=== PATIENT | female | born 1995 | race Caucasian/White ===

== ENCOUNTER 2017-11-17 12:27 | Emergency (ER) | payer MEDICAID ==
[~2017-11-17] VITALS: Ht 157.5 cm; Wt 68.0 kg
[2017-11-17] MEDS ORDERED: QUET200T PO (12:51)
[2017-11-17] MEDS ORDERED: DIVA-76 PO (12:51)
[2017-11-17] MEDS ORDERED: VENL-68 PO (12:51)
[2017-11-17] MEDS ORDERED: HALO100A IM (12:51)
[2017-11-17 13:46] LABS: BASOPHILS % (AUTO) 0.5 % (0.0-2.0); HEMATOCRIT 39.7 % (36-46); HEMOGLOBIN 13.5 g/dL (12.0-16.0); LYMPHOCYTES # (AUTO) 2.1 K/uL (1.0-4.8); LYMPHOCYTES % (AUTO) 20.2 % (22.0-44.0); MEAN CORPUSCULAR HEMOGLOBIN 30.8 pg (26.0-34.0); MEAN CORPUSCULAR VOLUME 91 fL (80-100); MONOCYTES # (AUTO) 1.1 K/uL (0.1-1.0); MONOCYTES % (AUTO) 10.9 % (2.0-9.0); NEUTROPHILS # (AUTO) 6.9 K/uL (1.8-7.7); NEUTROPHILS % (AUTO) 65.4 % (40.0-70.0); PLATELET COUNT (AUTO) 207 K/uL (150-450); RED BLOOD CELL COUNT(AUTO) 4.38 MIL/uL (4.00-5.20); RED CELL DISTRIBUTION WIDTH 13.6 % (11.5-14.5)
[2017-11-17 13:59] LABS: ANION GAP 7 mmol/L (8-16); CALCIUM, TOTAL 8.8 mg/dL (8.8-10.5); CARBON DIOXIDE 28 mmol/L (22-29); CHLORIDE 103 mmol/L (98-107); CREATININE 0.74 mg/dL (0.60-1.30); GLOMERULAR FILTR. RATE CALC > 60 mL/min (>60); GLUCOSE,RANDOM 108 mg/dL (70-110); POTASSIUM 3.7 mmol/L (3.5-5.1); SODIUM SERUM 138 mmol/L (136-145); UREA NITROGEN, BLOOD 9 mg/dL (7-18)
[2017-11-17 14:06] LABS: ALANINE AMINOTRANSFERASE 110 U/L (12-78); ALBUMIN 3.3 g/dL (3.4-5.0); ALKALINE PHOSPHATASE 85 U/L (46-116); ASPARTATE AMINOTRANSFERASE 81 U/L (15-37); BILIRUBIN,TOTAL 0.3 mg/dL (0.1-1.0); TOTAL PROTEIN, SERUM 7.6 g/dL (6.4-8.2); VALPROIC ACID 93 mcg/mL (50-100)
[2017-11-17 14:44] LABS: HCG,QUANTITATIVE < 1 mIU/mL (0-6)
[2017-11-17 15:07] VITALS: BP 114/71
== END 2017-11-17 15:24 | disposition home or self-care (01) ==
LOC: EMS 12:28
DX: F20.9 Schizophrenia, unspecified (principal); F31.9 Bipolar disorder, unspecified; G40.909 Epilepsy, unspecified, not intractable, without status epilepticus; Z79.899 Other long term (current) drug therapy
CPT/HCPCS: 36415; 80053; 80164; 84702; 84703; 85025; 99284; G0480

== ENCOUNTER 2017-11-27 15:20 | Inpatient (IN) | payer MEDICAID ==
[~2017-11-27] VITALS: Ht 157.5 cm; Wt 86.0 kg
[~2017-11-27 15:20] MED LIST: DIVA-76 PO; HALO100A IM; QUET200T PO; VENL-68 PO
[2017-11-27] MEDS ORDERED: CLON2 PO (15:27)
[2017-11-27 15:57] LABS: HEMATOCRIT 37.8 % (36-46); MEAN CORPUSCULAR HEMOGLOBIN 30.6 pg (26.0-34.0); MEAN CORPUSCULAR HGB CONC 34.5 G/dL (31.0-37.0); MEAN CORPUSCULAR VOLUME 89 fL (80-100); PLATELET COUNT (AUTO) 208 K/uL (150-450); RED BLOOD CELL COUNT(AUTO) 4.26 MIL/uL (4.00-5.20); RED CELL DISTRIBUTION WIDTH 13.2 % (11.5-14.5)
[2017-11-27 16:08] LABS: ANION GAP 6 mmol/L (8-16); CALCIUM, TOTAL 8.5 mg/dL (8.8-10.5); CARBON DIOXIDE 30 mmol/L (22-29); CHLORIDE 103 mmol/L (98-107); CREATININE 0.77 mg/dL (0.60-1.30); GLOMERULAR FILTR. RATE CALC > 60 mL/min (>60); GLUCOSE,RANDOM 85 mg/dL (70-110); POTASSIUM 3.8 mmol/L (3.5-5.1); SODIUM SERUM 139 mmol/L (136-145); UREA NITROGEN, BLOOD 13 mg/dL (7-18)
[2017-11-27 16:08] LABS: AMPHET/METH SCREEN,URINE NEGATIVE (NEGATIVE); BARBITURATE SCREEN, URINE NEGATIVE (NEGATIVE); BENZODIAZEPINES SCREEN,URINE NEGATIVE (NEGATIVE); CANNABINOID SCREEN,URINE NEGATIVE (NEGATIVE); COCAINE SCREEN,URINE NEGATIVE (NEGATIVE); METHADONE SCREEN, URINE NEGATIVE (NEGATIVE); OPIATE SCREEN,URINE NEGATIVE (NEGATIVE)
[2017-11-27 16:10] LABS: PHENCYCLIDINE SCREEN,URINE NEGATIVE (NEGATIVE)
[2017-11-27 16:22] LABS: ALANINE AMINOTRANSFERASE 67 U/L (12-78); ALBUMIN 3.5 g/dL (3.4-5.0); ALKALINE PHOSPHATASE 88 U/L (46-116); ASPARTATE AMINOTRANSFERASE 40 U/L (15-37); BILIRUBIN,TOTAL 0.2 mg/dL (0.1-1.0); HCG,QUANTITATIVE < 1 mIU/mL (0-6); TOTAL PROTEIN, SERUM 7.8 g/dL (6.4-8.2); VALPROIC ACID 77 mcg/mL (50-100)
[2017-11-27 16:48] LABS: BAND NEUTROPHILS % (MANUAL) 3 % (0-5); EOSINOPHILS % (MANUAL) 2 % (1-6); LYMPHOCYTES % (MANUAL) 24 % (22-44); METAMYELOCYTES % 1 % (0-0); MONOCYTES % (MANUAL) 14 % (2-9); SEGMENTED NEUTROPHILS % 56 % (40-70)
[2017-11-27 16:58] LABS: APPEARANCE,URINE CLEAR (CLEAR); BILIRUBIN,URINE NEGATIVE (NEGATIVE); GLUCOSE, URINE (UA) NEGATIVE (NEGATIVE); KETONES,URINE TRACE mg/dL (NEGATIVE); LEUKOCYTE ESTERASE ,URINE SMALL (NEGATIVE); NITRATE,URINE NEGATIVE (NEGATIVE); OCCULT BLOOD,URINE NEGATIVE (NEGATIVE); PROTEIN,URINE NEGATIVE (NEGATIVE); UROBILINOGEN,URINE 0.2 mg/dL (<=1.0)
[2017-11-27 17:05] LABS: BACTERIA,URINE Few /HPF (None Seen); RBC,URINE None Seen /HPF (0-2); SQUAMOUS EPITHELIAL CELL,UR Few /LPF (None Seen)
[2017-11-27 18:11] VITALS: BP 116/77
[2017-11-27] MEDS: ZOLPIDEM TARTRATE 10 MG TABLET PO PRN (20:47)
[2017-11-28 08:05] VITALS: BP 119/76
[2017-11-28] MEDS: NITROFURANTOIN/NITROFURAN MAC 100 MG CAPSULE [MACROBID] PO SCH ×2 (08:35→16:09)
[2017-11-28 16:01] VITALS: BP 113/70
[2017-11-28] MEDS: HALOPERIDOL 5 MG TABLET PO PRN (16:09)
[2017-11-28] MEDS: LORazepam 2 MG TABLET PO PRN (16:09)
[2017-11-28] MEDS: ZOLPIDEM TARTRATE 10 MG TABLET PO PRN (20:09)
[2017-11-28] MEDS ORDERED: HALOPERIDOL DECANOATE 50 MG/ML VIAL IM ONE (20:15)
[2017-11-28] MEDS: HALOPERIDOL 10 MG TABLET PO SCH (20:29)
[2017-11-29 00:29] VITALS: BP 133/99
[2017-11-29] MEDS: LORazepam 2 MG TABLET PO PRN (00:50)
[2017-11-29] MEDS: HALOPERIDOL 5 MG TABLET PO PRN (00:50)
[2017-11-29] MEDS: DIVALPROEX SODIUM 500 MG DR TABLET PO SCH ×2 (08:40→16:00)
[2017-11-29] MEDS: NITROFURANTOIN/NITROFURAN MAC 100 MG CAPSULE [MACROBID] PO SCH ×2 (08:40→16:00)
[2017-11-29 08:52] VITALS: BP 102/77
[2017-11-29 16:25] VITALS: BP 113/75
[2017-11-29] MEDS: HALOPERIDOL 10 MG TABLET PO SCH (20:00)
[2017-11-30 08:24] VITALS: BP 118/72
[2017-11-30] MEDS: NITROFURANTOIN/NITROFURAN MAC 100 MG CAPSULE [MACROBID] PO SCH ×2 (09:35→16:25)
[2017-11-30] MEDS: DIVALPROEX SODIUM 500 MG DR TABLET PO SCH ×2 (09:35→16:25)
[2017-11-30 16:18] VITALS: BP 114/67
[2017-11-30] MEDS: HALOPERIDOL 10 MG TABLET PO SCH (20:04)
[2017-12-01] MEDS: LORazepam 2 MG TABLET PO PRN ×3 (00:48→17:19)
[2017-12-01 08:17] VITALS: BP 118/83
[2017-12-01] MEDS: DIVALPROEX SODIUM 500 MG DR TABLET PO SCH ×2 (08:22→17:19)
[2017-12-01] MEDS: NITROFURANTOIN/NITROFURAN MAC 100 MG CAPSULE [MACROBID] PO SCH ×2 (08:22→17:19)
[2017-12-01 16:16] VITALS: BP 112/60
[2017-12-01] MEDS: HALOPERIDOL 5 MG TABLET PO PRN (17:19)
[2017-12-01] MEDS: HALOPERIDOL 10 MG TABLET PO SCH (20:55)
[2017-12-01] MEDS: ZOLPIDEM TARTRATE 10 MG TABLET PO PRN (20:55)
[2017-12-02 06:25] VITALS: BP 105/60
[2017-12-02] MEDS ORDERED: MACR100 PO (08:13)
[2017-12-02] MEDS ORDERED: HALO10 PO (08:13)
[2017-12-02] MEDS ORDERED: DIVA-78 PO (08:14)
[2017-12-02] MEDS: NITROFURANTOIN/NITROFURAN MAC 100 MG CAPSULE [MACROBID] PO SCH (08:15)
[2017-12-02] MEDS: DIVALPROEX SODIUM 500 MG DR TABLET PO SCH (08:15)
[2017-12-02 08:28] VITALS: BP 115/75
[2017-12-02 16:29] VITALS: BP 122/68
[2017-12-29] MEDS ORDERED: HALOPERIDOL DECANOATE 100 MG/ML VIAL IM SCH (09:00)
== END 2017-12-02 16:57 | disposition home or self-care (01) | DRG 750 ==
LOC: EMS 15:20 → B3A 17:01
PROVIDERS: ADMIT Psychiatry & Neurology Psychiatry; ATTEND Psychiatry & Neurology Psychiatry
DX: F20.0 Paranoid schizophrenia (principal); R45.851 Suicidal ideations; R45.850 Homicidal ideations; N39.0 Urinary tract infection, site not specified; G40.909 Epilepsy, unspecified, not intractable, without status epilepticus; Z23 Encounter for immunization
CPT/HCPCS: 87086; 90686; 99285; G0480; J1631

== ENCOUNTER 2017-12-02 20:21 | Inpatient (IN) | payer MEDICAID ==
[~2017-12-02] VITALS: Ht 157.5 cm; Wt 86.9 kg
[~2017-12-02 20:21] MED LIST changes: +CLON2 PO; +DIVA-78 PO; +HALO10 PO; +MACR100 PO
[2017-12-02 21:33] LABS: HEMATOCRIT 39.3 % (36-46); HEMOGLOBIN 13.4 g/dL (12.0-16.0); MEAN CORPUSCULAR HEMOGLOBIN 30.8 pg (26.0-34.0); MEAN CORPUSCULAR HGB CONC 34.2 G/dL (31.0-37.0); MEAN CORPUSCULAR VOLUME 90 fL (80-100); PLATELET COUNT (AUTO) 243 K/uL (150-450); RED BLOOD CELL COUNT(AUTO) 4.37 MIL/uL (4.00-5.20); RED CELL DISTRIBUTION WIDTH 13.6 % (11.5-14.5)
[2017-12-02 21:40] LABS: ANION GAP 9 mmol/L (8-16); CALCIUM, TOTAL 9.1 mg/dL (8.8-10.5); CARBON DIOXIDE 26 mmol/L (22-29); CHLORIDE 103 mmol/L (98-107); CREATININE 0.88 mg/dL (0.60-1.30); GLOMERULAR FILTR. RATE CALC > 60 mL/min (>60); GLUCOSE,RANDOM 122 mg/dL (70-110); POTASSIUM 3.9 mmol/L (3.5-5.1); SODIUM SERUM 138 mmol/L (136-145); UREA NITROGEN, BLOOD 11 mg/dL (7-18)
[2017-12-02 21:47] LABS: ALANINE AMINOTRANSFERASE 78 U/L (12-78); ALBUMIN 3.6 g/dL (3.4-5.0); ALKALINE PHOSPHATASE 93 U/L (46-116); ASPARTATE AMINOTRANSFERASE 48 U/L (15-37); BILIRUBIN,TOTAL 0.3 mg/dL (0.1-1.0); TOTAL PROTEIN, SERUM 8.5 g/dL (6.4-8.2)
[2017-12-02] MEDS ORDERED: DiphenhydrAMINE HCL 50 MG/ML VIAL IM ONE (22:00)
[2017-12-02] MEDS ORDERED: LORazepam 2 MG/ML VIAL IM ONE (22:00)
[2017-12-02] MEDS ORDERED: HALOPERIDOL LACTATE 5 MG/ML VIAL IM ONE (22:00)
[2017-12-02 22:09] LABS: BAND NEUTROPHILS % (MANUAL) 3 % (0-5); LYMPHOCYTES % (MANUAL) 18 % (22-44); MONOCYTES % (MANUAL) 14 % (2-9); MYELOCYTES % 2 % (0-0); SEGMENTED NEUTROPHILS % 63 % (40-70)
[2017-12-02 22:12] LABS: PLATELET MORPHOLOGY COMMENT GIANT PLTS PRESENT
[2017-12-03 00:59] LABS: AMPHET/METH SCREEN,URINE NEGATIVE (NEGATIVE); BARBITURATE SCREEN, URINE NEGATIVE (NEGATIVE); BENZODIAZEPINES SCREEN,URINE NEGATIVE (NEGATIVE); CANNABINOID SCREEN,URINE NEGATIVE (NEGATIVE); COCAINE SCREEN,URINE NEGATIVE (NEGATIVE); METHADONE SCREEN, URINE NEGATIVE (NEGATIVE); OPIATE SCREEN,URINE NEGATIVE (NEGATIVE); PHENCYCLIDINE SCREEN,URINE NEGATIVE (NEGATIVE)
[2017-12-03] MEDS ORDERED: SODIUM CHLORIDE 0.9% 2,000 ML IV ONE (01:15)
[2017-12-03 03:10] LABS: BASOPHILS % (AUTO) 0.3 % (0.0-2.0); EOSINOPHILS % (AUTO) 0.9 % (1.0-6.0); HEMATOCRIT 34.5 % (36-46); HEMOGLOBIN 11.8 g/dL (12.0-16.0); LYMPHOCYTES # (AUTO) 2.6 K/uL (1.0-4.8); LYMPHOCYTES % (AUTO) 19.7 % (22.0-44.0); MEAN CORPUSCULAR HEMOGLOBIN 30.9 pg (26.0-34.0); MEAN CORPUSCULAR HGB CONC 34.1 G/dL (31.0-37.0); MEAN CORPUSCULAR VOLUME 91 fL (80-100); MONOCYTES # (AUTO) 1.9 K/uL (0.1-1.0); MONOCYTES % (AUTO) 14.6 % (2.0-9.0); NEUTROPHILS # (AUTO) 8.4 K/uL (1.8-7.7); NEUTROPHILS % (AUTO) 64.5 % (40.0-70.0); PLATELET COUNT (AUTO) 187 K/uL (150-450); RED BLOOD CELL COUNT(AUTO) 3.82 MIL/uL (4.00-5.20); RED CELL DISTRIBUTION WIDTH 13.5 % (11.5-14.5)
[2017-12-03 03:18] LABS: ANION GAP 3 mmol/L (8-16); CALCIUM, TOTAL 7.9 mg/dL (8.8-10.5); CARBON DIOXIDE 29 mmol/L (22-29); CHLORIDE 107 mmol/L (98-107); CREATININE 0.78 mg/dL (0.60-1.30); GLOMERULAR FILTR. RATE CALC > 60 mL/min (>60); GLUCOSE,RANDOM 116 mg/dL (70-110); POTASSIUM 4.3 mmol/L (3.5-5.1); SODIUM SERUM 139 mmol/L (136-145); UREA NITROGEN, BLOOD 12 mg/dL (7-18)
[2017-12-03 03:23] LABS: ALANINE AMINOTRANSFERASE 61 U/L (12-78); ALBUMIN 2.8 g/dL (3.4-5.0); ALKALINE PHOSPHATASE 78 U/L (46-116); ASPARTATE AMINOTRANSFERASE 39 U/L (15-37); BILIRUBIN,TOTAL 0.2 mg/dL (0.1-1.0); TOTAL PROTEIN, SERUM 6.4 g/dL (6.4-8.2)
[2017-12-03 03:26] LABS: APPEARANCE,URINE CLOUDY (CLEAR); BILIRUBIN,URINE NEGATIVE (NEGATIVE); GLUCOSE, URINE (UA) NEGATIVE (NEGATIVE); KETONES,URINE NEGATIVE (NEGATIVE); LEUKOCYTE ESTERASE ,URINE NEGATIVE (NEGATIVE); NITRATE,URINE NEGATIVE (NEGATIVE); OCCULT BLOOD,URINE LARGE (NEGATIVE); PROTEIN,URINE NEGATIVE (NEGATIVE); UROBILINOGEN,URINE 0.2 mg/dL (<=1.0)
[2017-12-03 03:33] LABS: BACTERIA,URINE Moderate /HPF (None Seen); SQUAMOUS EPITHELIAL CELL,UR Many /LPF (None Seen)
[2017-12-03 04:59] VITALS: BP 115/71
[2017-12-03 10:26] VITALS: BP 117/73
[2017-12-03] MEDS: LORazepam 2 MG TABLET PO PRN (11:09)
[2017-12-03] MEDS: HALOPERIDOL 5 MG TABLET PO PRN (11:09)
[2017-12-03] MEDS: DIVALPROEX SODIUM 500 MG DR TABLET PO SCH (17:56)
[2017-12-03] MEDS: NITROFURANTOIN/NITROFURAN MAC 100 MG CAPSULE [MACROBID] PO SCH (17:56)
[2017-12-03 20:14] VITALS: BP 113/61
[2017-12-03] MEDS: HALOPERIDOL 5 MG TABLET PO SCH (21:41)
[2017-12-04 09:26] VITALS: BP 135/77
[2017-12-04] MEDS: NITROFURANTOIN/NITROFURAN MAC 100 MG CAPSULE [MACROBID] PO SCH (10:46)
[2017-12-04] MEDS: DIVALPROEX SODIUM 500 MG DR TABLET PO SCH ×2 (10:47→16:18)
[2017-12-04 19:31] VITALS: BP 109/73
[2017-12-04] MEDS: HALOPERIDOL 5 MG TABLET PO SCH (21:21)
[2017-12-05 09:00] VITALS: BP 119/79
[2017-12-05] MEDS: DIVALPROEX SODIUM 500 MG DR TABLET PO SCH ×2 (10:57→17:10)
[2017-12-05] MEDS ORDERED: DiphenhydrAMINE HCL 50 MG/ML VIAL ONE (16:04)
[2017-12-05] MEDS ORDERED: LORazepam 2 MG/ML VIAL ONE (16:04)
[2017-12-05] MEDS ORDERED: HALOPERIDOL LACTATE 5 MG/ML VIAL ONE (16:04)
[2017-12-05] MEDS ORDERED: LORazepam 2 MG/ML VIAL IM ONE (16:15)
[2017-12-05] MEDS ORDERED: DiphenhydrAMINE HCL 50 MG/ML VIAL IM ONE (16:15)
[2017-12-05] MEDS ORDERED: HALOPERIDOL LACTATE 5 MG/ML VIAL IM ONE (16:15)
[2017-12-05] MEDS: HALOPERIDOL 5 MG TABLET PO SCH (20:26)
[2017-12-05 20:55] VITALS: BP 124/76
[2017-12-06] MEDS: DIVALPROEX SODIUM 500 MG DR TABLET PO SCH ×2 (08:25→16:03)
[2017-12-06 08:29] VITALS: BP 100/65
[2017-12-06] MEDS ORDERED: ACETAMINOPHEN 325 MG TABLET PO PRN (13:45)
[2017-12-06 14:00] VITALS: BP 115/73
[2017-12-06 15:06] VITALS: BP 112/69
[2017-12-06 16:00] VITALS: BP 117/76
[2017-12-06] MEDS: HALOPERIDOL 5 MG TABLET PO PRN (16:03)
[2017-12-06] MEDS: HALOPERIDOL 5 MG TABLET PO SCH (20:11)
[2017-12-07 08:16] VITALS: BP 110/74
[2017-12-07] MEDS: DIVALPROEX SODIUM 500 MG DR TABLET PO SCH ×2 (08:53→17:00)
[2017-12-07] MEDS: LORazepam 2 MG TABLET PO PRN (14:00)
[2017-12-07] MEDS: HALOPERIDOL 5 MG TABLET PO PRN (14:01)
[2017-12-07 16:16] VITALS: BP 113/69
[2017-12-07] MEDS: ZOLPIDEM TARTRATE 10 MG TABLET PO PRN (20:19)
[2017-12-07] MEDS: HALOPERIDOL 5 MG TABLET PO SCH (20:19)
[2017-12-08 08:22] VITALS: BP 124/71
[2017-12-08] MEDS: LORazepam 2 MG TABLET PO PRN ×2 (09:30→13:35)
[2017-12-08] MEDS: DIVALPROEX SODIUM 500 MG DR TABLET PO SCH ×2 (09:31→16:17)
[2017-12-08] MEDS: HALOPERIDOL 5 MG TABLET PO PRN ×2 (09:31→13:35)
[2017-12-08] MEDS ORDERED: PERMETHRIN 5% 60 GM CREAM TP ONE (11:45)
[2017-12-08 16:00] VITALS: BP 100/75
[2017-12-08] MEDS: HALOPERIDOL 5 MG TABLET PO SCH (20:24)
[2017-12-09] MEDS: ZOLPIDEM TARTRATE 10 MG TABLET PO PRN (00:42)
[2017-12-09] MEDS: LORazepam 2 MG TABLET PO PRN ×2 (00:42→14:44)
[2017-12-09 08:09] VITALS: BP 102/86
[2017-12-09] MEDS: DIVALPROEX SODIUM 500 MG DR TABLET PO SCH ×2 (08:33→17:44)
[2017-12-09] MEDS: HALOPERIDOL 5 MG TABLET PO PRN (14:44)
[2017-12-09 16:35] VITALS: BP 126/76
[2017-12-09] MEDS: HALOPERIDOL 5 MG TABLET PO SCH (20:09)
[2017-12-10] MEDS: LORazepam 2 MG TABLET PO PRN (01:40)
[2017-12-10] MEDS: ZOLPIDEM TARTRATE 10 MG TABLET PO PRN (01:40)
[2017-12-10 08:00] VITALS: BP 112/66
[2017-12-10] MEDS: DIVALPROEX SODIUM 500 MG DR TABLET PO SCH ×2 (08:34→16:14)
[2017-12-10] MEDS ORDERED: HALO100V4 IM (14:09)
[2017-12-10 16:00] VITALS: BP 114/77
[2017-12-29] MEDS ORDERED: HALOPERIDOL DECANOATE 100 MG/ML VIAL IM SCH ×2 (09:00)
== END 2017-12-10 16:25 | disposition home or self-care (01) | DRG 750 ==
LOC: EMS 20:22 → 3EI 12-03 01:00 → 3EC 12-05 16:09
PROVIDERS: ADMIT Psychiatry & Neurology Psychiatry; ATTEND Psychiatry & Neurology Psychiatry
DX: F20.0 Paranoid schizophrenia (principal); Z78.1 Physical restraint status; G40.909 Epilepsy, unspecified, not intractable, without status epilepticus; F31.9 Bipolar disorder, unspecified; D64.9 Anemia, unspecified; Z87.440 Personal history of urinary (tract) infections
CPT/HCPCS: 87081; 87086; 96360; 96372; G0480; J1200; J1630; J2060

== ENCOUNTER 2018-03-06 10:23 | Inpatient (IN) | payer MEDICAID ==
[~2018-03-06] VITALS: Ht 157.5 cm; Wt 81.8 kg
[~2018-03-06 10:23] MED LIST changes: -CLON2 PO; -DIVA-76 PO; -HALO100A IM; +HALO100V4 IM; -MACR100 PO; -QUET200T PO; -VENL-68 PO
[2018-03-06] MEDS ORDERED: LORazepam 2 MG/ML VIAL IM ONE (11:30)
[2018-03-06] MEDS ORDERED: HALOPERIDOL LACTATE 5 MG/ML VIAL IM ONE (11:30)
[2018-03-06] MEDS ORDERED: DiphenhydrAMINE HCL 50 MG/ML VIAL IM ONE (11:30)
[2018-03-06 11:31] LABS: HEMATOCRIT 38.8 % (36-46); HEMOGLOBIN 13.3 g/dL (12.0-16.0); MEAN CORPUSCULAR HEMOGLOBIN 30.8 pg (26.0-34.0); MEAN CORPUSCULAR HGB CONC 34.4 G/dL (31.0-37.0); MEAN CORPUSCULAR VOLUME 90 fL (80-100); PLATELET COUNT (AUTO) 165 K/uL (150-450); RED BLOOD CELL COUNT(AUTO) 4.33 MIL/uL (4.00-5.20); RED CELL DISTRIBUTION WIDTH 14.4 % (11.5-14.5)
[2018-03-06 11:41] LABS: ANION GAP 11 mmol/L (8-16); CALCIUM, TOTAL 9.2 mg/dL (8.8-10.5); CARBON DIOXIDE 26 mmol/L (22-29); CHLORIDE 101 mmol/L (98-107); CREATININE 0.92 mg/dL (0.60-1.30); GLOMERULAR FILTR. RATE CALC > 60 mL/min (>60); GLUCOSE,RANDOM 144 mg/dL (70-110); POTASSIUM 3.9 mmol/L (3.5-5.1); SODIUM SERUM 138 mmol/L (136-145); UREA NITROGEN, BLOOD 11 mg/dL (7-18)
[2018-03-06 11:47] LABS: ALANINE AMINOTRANSFERASE 66 U/L (12-78); ALBUMIN 3.4 g/dL (3.4-5.0); ALKALINE PHOSPHATASE 84 U/L (46-116); ASPARTATE AMINOTRANSFERASE 58 U/L (15-37); BILIRUBIN,TOTAL 0.4 mg/dL (0.1-1.0); TOTAL PROTEIN, SERUM 7.6 g/dL (6.4-8.2)
[2018-03-06 12:20] LABS: AMPHET/METH SCREEN,URINE NEGATIVE (NEGATIVE); BARBITURATE SCREEN, URINE NEGATIVE (NEGATIVE); BENZODIAZEPINES SCREEN,URINE NEGATIVE (NEGATIVE); CANNABINOID SCREEN,URINE NEGATIVE (NEGATIVE); COCAINE SCREEN,URINE NEGATIVE (NEGATIVE); METHADONE SCREEN, URINE NEGATIVE (NEGATIVE); OPIATE SCREEN,URINE NEGATIVE (NEGATIVE); PHENCYCLIDINE SCREEN,URINE NEGATIVE (NEGATIVE)
[2018-03-06 12:29] LABS: BAND NEUTROPHILS % (MANUAL) 1 % (0-5); LYMPHOCYTES % (MANUAL) 21 % (22-44); METAMYELOCYTES % 2 % (0-0); MONOCYTES % (MANUAL) 15 % (2-9); SEGMENTED NEUTROPHILS % 61 % (40-70)
[2018-03-06 12:39] LABS: APPEARANCE,URINE CLEAR (CLEAR); BILIRUBIN,URINE PRELIM. POSITIVE (NEGATIVE); GLUCOSE, URINE (UA) NEGATIVE (NEGATIVE); KETONES,URINE TRACE mg/dL (NEGATIVE); LEUKOCYTE ESTERASE ,URINE TRACE (NEGATIVE); NITRATE,URINE NEGATIVE (NEGATIVE); OCCULT BLOOD,URINE NEGATIVE (NEGATIVE); PROTEIN,URINE TRACE (NEGATIVE)
[2018-03-06 12:45] LABS: BACTERIA,URINE None Seen /HPF (None Seen); RBC,URINE None Seen /HPF (0-2); SQUAMOUS EPITHELIAL CELL,UR Few /LPF (None Seen); WBC,URINE 0-2 /HPF (0-5)
[2018-03-06 14:40] VITALS: BP 110/73
[2018-03-06] MEDS ORDERED: IBUPROFEN 400 MG TABLET PO PRN (15:30)
[2018-03-06] MEDS ORDERED: MAG HYDROX/AL HYDROX/SIMETH ES 30 ML SUSPENSION UDCUP PO PRN (15:30)
[2018-03-06] MEDS ORDERED: ACETAMINOPHEN 325 MG TABLET PO PRN (15:30)
[2018-03-06] MEDS ORDERED: GuaiFENesin/D-METHORPHAN [SUGAR-FREE] 200-20MG/10 ML SYRUP UDCUP PO PRN (15:30)
[2018-03-06] MEDS ORDERED: NICOTINE 14 MG/24 HOUR PATCH TD PRN (15:30)
[2018-03-06] MEDS ORDERED: LOPERAMIDE HCL 2 MG CAPSULE PO PRN (15:30)
[2018-03-06] MEDS ORDERED: MAGNESIUM HYDROXIDE SUSPENSION 30 ML UDCUP PO PRN (15:30)
[2018-03-06] MEDS ORDERED: ONDANSETRON HCL 4 MG TABLET PO PRN (15:30)
[2018-03-06] MEDS ORDERED: CloNIDine HCL 0.1 MG TABLET PO PRN (15:30)
[2018-03-06] MEDS ORDERED: PETROLATUM,WHITE 71 GM JELLY TP PRN (15:30)
[2018-03-06] MEDS ORDERED: ALBUTEROL SULFATE HFA 90 MCG/PUFF 8 GM INHALER IH PRN (15:30)
[2018-03-06 16:08] VITALS: BP 109/66
[2018-03-06] MEDS: DIVALPROEX SODIUM 500 MG ER TABLET PO SCH (16:42)
[2018-03-06] MEDS: HALOPERIDOL 10 MG TABLET PO SCH (20:16)
[2018-03-07] MEDS: DIVALPROEX SODIUM 500 MG ER TABLET PO SCH ×2 (08:28→17:28)
[2018-03-07 09:00] VITALS: BP 101/54
[2018-03-07 16:00] VITALS: BP 107/64
[2018-03-07] MEDS: HALOPERIDOL 10 MG TABLET PO SCH (20:40)
[2018-03-07] MEDS: ZOLPIDEM TARTRATE 10 MG TABLET PO PRN (21:48)
[2018-03-08 08:01] VITALS: BP 104/61
[2018-03-08] MEDS: DIVALPROEX SODIUM 500 MG ER TABLET PO SCH ×2 (09:03→17:13)
[2018-03-08 16:18] VITALS: BP 119/78
[2018-03-08] MEDS: HALOPERIDOL 10 MG TABLET PO SCH (20:25)
[2018-03-08] MEDS: HALOPERIDOL 5 MG TABLET PO PRN (23:57)
[2018-03-09] MEDS: DIVALPROEX SODIUM 500 MG ER TABLET PO SCH ×2 (08:16→16:37)
[2018-03-09 08:52] LABS: BASOPHILS % (AUTO) 0.6 % (0.0-2.0); EOSINOPHILS % (AUTO) 0.4 % (1.0-6.0); HEMATOCRIT 38.6 % (36-46); HEMOGLOBIN 13.2 g/dL (12.0-16.0); LYMPHOCYTES # (AUTO) 3.3 K/uL (1.0-4.8); LYMPHOCYTES % (AUTO) 23.4 % (22.0-44.0); MEAN CORPUSCULAR HEMOGLOBIN 30.8 pg (26.0-34.0); MEAN CORPUSCULAR HGB CONC 34.2 G/dL (31.0-37.0); MEAN CORPUSCULAR VOLUME 90 fL (80-100); MONOCYTES # (AUTO) 2.1 K/uL (0.1-1.0); MONOCYTES % (AUTO) 14.7 % (2.0-9.0); NEUTROPHILS # (AUTO) 8.6 K/uL (1.8-7.7); NEUTROPHILS % (AUTO) 60.9 % (40.0-70.0); PLATELET COUNT (AUTO) 167 K/uL (150-450); RED BLOOD CELL COUNT(AUTO) 4.28 MIL/uL (4.00-5.20); RED CELL DISTRIBUTION WIDTH 14.5 % (11.5-14.5)
[2018-03-09 09:21] LABS: ALANINE AMINOTRANSFERASE 65 U/L (12-78); ALBUMIN 3.5 g/dL (3.4-5.0); ALKALINE PHOSPHATASE 78 U/L (46-116); ANION GAP 10 mmol/L (8-16); ASPARTATE AMINOTRANSFERASE 46 U/L (15-37); BILIRUBIN,TOTAL 0.4 mg/dL (0.1-1.0); CALCIUM, TOTAL 9.2 mg/dL (8.8-10.5); CARBON DIOXIDE 27 mmol/L (22-29); CHLORIDE 101 mmol/L (98-107); CHOL/HDL RATIO 3.4 (3.9-5.7); CHOLESTEROL 114 mg/dL (131-200); CREATININE 0.61 mg/dL (0.60-1.30); GLOMERULAR FILTR. RATE CALC > 60 mL/min (>60); GLUCOSE,RANDOM 117 mg/dL (70-110); HDL CHOLESTEROL 34 mg/dL (40-60); LDL CHOL (CALC.) 67 mg/dL (0-130); POTASSIUM 3.8 mmol/L (3.5-5.1); SODIUM SERUM 138 mmol/L (136-145); TOTAL PROTEIN, SERUM 7.7 g/dL (6.4-8.2); TRIGLYCERIDES 64 mg/dL (15-150); UREA NITROGEN, BLOOD 9 mg/dL (7-18); VALPROIC ACID 79 mcg/mL (50-100)
[2018-03-09 15:07] VITALS: BP 102/74
[2018-03-09] MEDS: CEPHALEXIN MONOHYDRATE 250 MG CAPSULE PO SCH (16:37)
[2018-03-09 19:04] VITALS: BP 100/57
[2018-03-09] MEDS: HALOPERIDOL 10 MG TABLET PO SCH (21:27)
[2018-03-10] MEDS: ZOLPIDEM TARTRATE 10 MG TABLET PO PRN ×2 (00:52→21:51)
[2018-03-10] MEDS: LORazepam 2 MG TABLET PO PRN ×2 (00:52→10:00)
[2018-03-10 08:00] VITALS: BP 99/55
[2018-03-10] MEDS: DIVALPROEX SODIUM 500 MG ER TABLET PO SCH (08:22)
[2018-03-10] MEDS: CEPHALEXIN MONOHYDRATE 250 MG CAPSULE PO SCH ×3 (08:22→17:38)
[2018-03-10] MEDS: HALOPERIDOL 5 MG TABLET PO PRN (10:00)
[2018-03-10 16:46] VITALS: BP 120/69
[2018-03-10] MEDS: DIVALPROEX SODIUM 250 MG ER TABLET PO SCH (17:38)
[2018-03-10] MEDS: HALOPERIDOL 10 MG TABLET PO SCH (20:50)
[2018-03-11] MEDS: LORazepam 2 MG TABLET PO PRN (00:41)
[2018-03-11] MEDS: CEPHALEXIN MONOHYDRATE 250 MG CAPSULE PO SCH ×3 (08:04→18:00)
[2018-03-11] MEDS: DIVALPROEX SODIUM 250 MG ER TABLET PO SCH ×2 (08:04→18:00)
[2018-03-11 08:11] VITALS: BP 101/56
[2018-03-11 16:00] VITALS: BP 107/62
[2018-03-11] MEDS: HALOPERIDOL 10 MG TABLET PO SCH (21:00)
[2018-03-12 06:10] VITALS: BP 123/73
[2018-03-12 08:35] VITALS: BP 116/85
[2018-03-12] MEDS: CEPHALEXIN MONOHYDRATE 250 MG CAPSULE PO SCH ×3 (08:50→15:49)
[2018-03-12] MEDS: DIVALPROEX SODIUM 250 MG ER TABLET PO SCH ×2 (08:50→17:11)
[2018-03-12] MEDS: LORazepam 2 MG TABLET PO PRN (15:48)
[2018-03-12 16:29] VITALS: BP 110/66
[2018-03-12] MEDS: HALOPERIDOL 10 MG TABLET PO SCH (20:16)
[2018-03-13] MEDS: ZOLPIDEM TARTRATE 10 MG TABLET PO PRN (00:26)
[2018-03-13] MEDS: LORazepam 2 MG TABLET PO PRN (00:26)
[2018-03-13 00:55] VITALS: BP 120/73
[2018-03-13] MEDS: CEPHALEXIN MONOHYDRATE 250 MG CAPSULE PO SCH ×3 (09:36→17:20)
[2018-03-13] MEDS: DIVALPROEX SODIUM 250 MG ER TABLET PO SCH (09:37)
[2018-03-13 10:04] LABS: ALANINE AMINOTRANSFERASE 54 U/L (12-78); ALBUMIN 3.2 g/dL (3.4-5.0); ALKALINE PHOSPHATASE 78 U/L (46-116); ANION GAP 7 mmol/L (8-16); ASPARTATE AMINOTRANSFERASE 33 U/L (15-37); BILIRUBIN,TOTAL 0.3 mg/dL (0.1-1.0); CALCIUM, TOTAL 8.8 mg/dL (8.8-10.5); CARBON DIOXIDE 30 mmol/L (22-29); CHLORIDE 103 mmol/L (98-107); CREATININE 0.66 mg/dL (0.60-1.30); GLOMERULAR FILTR. RATE CALC > 60 mL/min (>60); GLUCOSE,RANDOM 101 mg/dL (70-110); POTASSIUM 3.6 mmol/L (3.5-5.1); SODIUM SERUM 140 mmol/L (136-145); TOTAL PROTEIN, SERUM 7.2 g/dL (6.4-8.2); UREA NITROGEN, BLOOD 7 mg/dL (7-18); VALPROIC ACID 99 mcg/mL (50-100)
[2018-03-13 14:41] VITALS: BP 96/60
[2018-03-13] MEDS: DIVALPROEX SODIUM 500 MG ER TABLET PO SCH (17:21)
[2018-03-13 18:23] VITALS: BP 102/63
[2018-03-13] MEDS: HALOPERIDOL 10 MG TABLET PO SCH (21:00)
[2018-03-14] MEDS: LORazepam 2 MG TABLET PO PRN ×3 (00:09→23:26)
[2018-03-14] MEDS: ZOLPIDEM TARTRATE 10 MG TABLET PO PRN ×2 (00:10→23:26)
[2018-03-14 07:31] LABS: ALANINE AMINOTRANSFERASE 67 U/L (12-78); ALBUMIN 3.4 g/dL (3.4-5.0); ALKALINE PHOSPHATASE 86 U/L (46-116); ANION GAP 9 mmol/L (8-16); ASPARTATE AMINOTRANSFERASE 43 U/L (15-37); BILIRUBIN,TOTAL 0.4 mg/dL (0.1-1.0); CALCIUM, TOTAL 8.9 mg/dL (8.8-10.5); CARBON DIOXIDE 28 mmol/L (22-29); CHLORIDE 101 mmol/L (98-107); GLOMERULAR FILTR. RATE CALC > 60 mL/min (>60); GLUCOSE,RANDOM 82 mg/dL (70-110); SODIUM SERUM 138 mmol/L (136-145); TOTAL PROTEIN, SERUM 7.4 g/dL (6.4-8.2); UREA NITROGEN, BLOOD 7 mg/dL (7-18)
[2018-03-14 08:32] VITALS: BP 136/90
[2018-03-14] MEDS: CEPHALEXIN MONOHYDRATE 250 MG CAPSULE PO SCH ×3 (09:10→18:00)
[2018-03-14] MEDS: DIVALPROEX SODIUM 500 MG ER TABLET PO SCH ×2 (09:10→18:00)
[2018-03-14] MEDS: HALOPERIDOL 5 MG TABLET PO PRN (09:10)
[2018-03-14 16:30] VITALS: BP 116/68
[2018-03-14] MEDS: HALOPERIDOL 10 MG TABLET PO SCH (21:15)
[2018-03-15 06:43] LABS: BASOPHILS % (AUTO) 0.5 % (0.0-2.0); EOSINOPHILS % (AUTO) 0.8 % (1.0-6.0); HEMATOCRIT 41.4 % (36-46); LYMPHOCYTES # (AUTO) 3.1 K/uL (1.0-4.8); LYMPHOCYTES % (AUTO) 24.1 % (22.0-44.0); MEAN CORPUSCULAR HEMOGLOBIN 31.1 pg (26.0-34.0); MEAN CORPUSCULAR HGB CONC 33.9 G/dL (31.0-37.0); MEAN CORPUSCULAR VOLUME 92 fL (80-100); MONOCYTES # (AUTO) 1.4 K/uL (0.1-1.0); MONOCYTES % (AUTO) 11.2 % (2.0-9.0); NEUTROPHILS # (AUTO) 8.2 K/uL (1.8-7.7); NEUTROPHILS % (AUTO) 63.4 % (40.0-70.0); PLATELET COUNT (AUTO) 191 K/uL (150-450); RED BLOOD CELL COUNT(AUTO) 4.51 MIL/uL (4.00-5.20)
[2018-03-15 08:30] VITALS: BP 107/74
[2018-03-15] MEDS: HALOPERIDOL 5 MG TABLET PO PRN ×2 (10:38→14:41)
[2018-03-15] MEDS: CEPHALEXIN MONOHYDRATE 250 MG CAPSULE PO SCH ×3 (10:38→17:45)
[2018-03-15] MEDS: DIVALPROEX SODIUM 500 MG ER TABLET PO SCH ×2 (10:38→17:45)
[2018-03-15] MEDS: LORazepam 2 MG TABLET PO PRN ×2 (10:38→14:41)
[2018-03-15 18:17] VITALS: BP 112/78
[2018-03-15] MEDS: HALOPERIDOL 10 MG TABLET PO SCH (20:37)
[2018-03-16 06:48] LABS: VALPROIC ACID 149 mcg/mL (50-100)
[2018-03-16 08:15] VITALS: BP 131/89
[2018-03-16] MEDS: DIVALPROEX SODIUM 500 MG ER TABLET PO SCH ×2 (09:30→17:11)
[2018-03-16] MEDS: LORazepam 2 MG TABLET PO PRN ×2 (09:30→17:17)
[2018-03-16] MEDS: HALOPERIDOL 5 MG TABLET PO PRN (09:30)
[2018-03-16] MEDS: CEPHALEXIN MONOHYDRATE 250 MG CAPSULE PO SCH ×2 (09:30→14:36)
[2018-03-16 11:25] LABS: BASOPHILS % (AUTO) 0.4 % (0.0-2.0); EOSINOPHILS % (AUTO) 0.4 % (1.0-6.0); HEMATOCRIT 41.5 % (36-46); HEMOGLOBIN 13.8 g/dL (12.0-16.0); LYMPHOCYTES # (AUTO) 2.5 K/uL (1.0-4.8); LYMPHOCYTES % (AUTO) 20.8 % (22.0-44.0); MEAN CORPUSCULAR HEMOGLOBIN 30.7 pg (26.0-34.0); MEAN CORPUSCULAR HGB CONC 33.1 G/dL (31.0-37.0); MEAN CORPUSCULAR VOLUME 93 fL (80-100); MONOCYTES # (AUTO) 1.5 K/uL (0.1-1.0); MONOCYTES % (AUTO) 12.7 % (2.0-9.0); NEUTROPHILS # (AUTO) 7.9 K/uL (1.8-7.7); NEUTROPHILS % (AUTO) 65.7 % (40.0-70.0); PLATELET COUNT (AUTO) 211 K/uL (150-450); RED BLOOD CELL COUNT(AUTO) 4.48 MIL/uL (4.00-5.20); RED CELL DISTRIBUTION WIDTH 14.9 % (11.5-14.5)
[2018-03-16 11:34] LABS: ALANINE AMINOTRANSFERASE 55 U/L (12-78); ALBUMIN 3.7 g/dL (3.4-5.0); ALKALINE PHOSPHATASE 88 U/L (46-116); ANION GAP 14 mmol/L (8-16); ASPARTATE AMINOTRANSFERASE 46 U/L (15-37); BILIRUBIN,TOTAL 0.3 mg/dL (0.1-1.0); CALCIUM, TOTAL 9.2 mg/dL (8.8-10.5); CARBON DIOXIDE 25 mmol/L (22-29); CHLORIDE 100 mmol/L (98-107); CREATININE 0.65 mg/dL (0.60-1.30); GLOMERULAR FILTR. RATE CALC > 60 mL/min (>60); GLUCOSE,RANDOM 81 mg/dL (70-110); POTASSIUM 3.8 mmol/L (3.5-5.1); SODIUM SERUM 139 mmol/L (136-145); UREA NITROGEN, BLOOD 9 mg/dL (7-18)
[2018-03-16 16:05] VITALS: BP 113/63
[2018-03-16] MEDS: HALOPERIDOL 10 MG TABLET PO SCH (20:04)
[2018-03-17] MEDS: LORazepam 2 MG TABLET PO PRN (00:02)
[2018-03-17] MEDS: ZOLPIDEM TARTRATE 10 MG TABLET PO PRN (00:02)
[2018-03-17] MEDS: DIVALPROEX SODIUM 500 MG ER TABLET PO SCH ×2 (08:35→20:40)
[2018-03-17 09:31] VITALS: BP 101/56
[2018-03-17 16:41] VITALS: BP 117/82
[2018-03-17] MEDS: HALOPERIDOL 10 MG TABLET PO SCH (22:02)
[2018-03-18] MEDS: LORazepam 2 MG TABLET PO PRN ×2 (00:37→22:25)
[2018-03-18] MEDS: ZOLPIDEM TARTRATE 10 MG TABLET PO PRN (00:37)
[2018-03-18 08:23] VITALS: BP 119/72
[2018-03-18] MEDS: DIVALPROEX SODIUM 500 MG ER TABLET PO SCH ×2 (09:41→17:06)
[2018-03-18 16:34] VITALS: BP 118/75
[2018-03-18] MEDS: HALOPERIDOL 10 MG TABLET PO SCH (21:15)
[2018-03-18] MEDS: HALOPERIDOL 5 MG TABLET PO PRN (22:25)
[2018-03-19] MEDS: ZOLPIDEM TARTRATE 10 MG TABLET PO PRN (01:27)
[2018-03-19] MEDS: DIVALPROEX SODIUM 500 MG ER TABLET PO SCH (08:19)
[2018-03-19] MEDS: HALOPERIDOL 5 MG TABLET PO PRN (08:21)
[2018-03-19] MEDS: LORazepam 2 MG TABLET PO PRN (08:21)
[2018-03-19 08:43] VITALS: BP 120/78
[2018-03-19] MEDS ORDERED: DIVA500T52 PO (10:03)
== END 2018-03-19 15:00 | disposition home or self-care (01) | DRG 750 ==
LOC: EMS 10:24 → 3EC 12:43
PROVIDERS: ADMIT Psychiatry & Neurology Psychiatry; ATTEND Psychiatry & Neurology Psychiatry
DX: F25.0 Schizoaffective disorder, bipolar type (principal); R45.851 Suicidal ideations; G40.909 Epilepsy, unspecified, not intractable, without status epilepticus; F41.9 Anxiety disorder, unspecified; D72.829 Elevated white blood cell count, unspecified; N39.0 Urinary tract infection, site not specified; Z79.899 Other long term (current) drug therapy; Z91.14 Patient's other noncompliance with medication regimen; Z91.19 Patient's noncompliance with other medical treatment and regimen
CPT/HCPCS: 96372; G0480; J1200; J1630; J2060

== ENCOUNTER 2018-03-20 18:16 | Inpatient (IN) | payer MEDICAID ==
[~2018-03-20] VITALS: Ht 160 cm; Wt 8.0 kg
[~2018-03-20 18:16] MED LIST changes: -DIVA-78 PO; +DIVA500T52 PO; -HALO100V4 IM
[2018-03-20 19:15] LABS: HEMATOCRIT 39.6 % (36-46); HEMOGLOBIN 13.3 g/dL (12.0-16.0); MEAN CORPUSCULAR HEMOGLOBIN 30.7 pg (26.0-34.0); MEAN CORPUSCULAR HGB CONC 33.6 G/dL (31.0-37.0); MEAN CORPUSCULAR VOLUME 92 fL (80-100); PLATELET COUNT (AUTO) 165 K/uL (150-450); RED BLOOD CELL COUNT(AUTO) 4.32 MIL/uL (4.00-5.20); RED CELL DISTRIBUTION WIDTH 14.7 % (11.5-14.5)
[2018-03-20 19:27] LABS: ANION GAP 7 mmol/L (8-16); CARBON DIOXIDE 30 mmol/L (22-29); CHLORIDE 100 mmol/L (98-107); CREATININE 0.67 mg/dL (0.60-1.30); GLOMERULAR FILTR. RATE CALC > 60 mL/min (>60); GLUCOSE,RANDOM 123 mg/dL (70-110); POTASSIUM 3.5 mmol/L (3.5-5.1); SODIUM SERUM 137 mmol/L (136-145); UREA NITROGEN, BLOOD 10 mg/dL (7-18)
[2018-03-20 19:38] LABS: ALANINE AMINOTRANSFERASE 51 U/L (12-78); ALBUMIN 3.5 g/dL (3.4-5.0); ALKALINE PHOSPHATASE 85 U/L (46-116); ASPARTATE AMINOTRANSFERASE 40 U/L (15-37); BILIRUBIN,TOTAL 0.3 mg/dL (0.1-1.0); HCG,QUANTITATIVE < 1 mIU/mL (0-6); TOTAL PROTEIN, SERUM 7.5 g/dL (6.4-8.2)
[2018-03-20 20:31] LABS: BAND NEUTROPHILS % (MANUAL) 0 % (0-5)
[2018-03-20 20:32] LABS: EOSINOPHILS % (MANUAL) 1 % (1-6); LYMPHOCYTES % (MANUAL) 29 % (22-44); METAMYELOCYTES % 1 % (0-0); MONOCYTES % (MANUAL) 14 % (2-9); MYELOCYTES % 3 % (0-0); SEGMENTED NEUTROPHILS % 52 % (40-70)
[2018-03-20 20:52] LABS: VALPROIC ACID 132 mcg/mL (50-100)
[2018-03-20 21:16] LABS: AMPHET/METH SCREEN,URINE NEGATIVE (NEGATIVE); BARBITURATE SCREEN, URINE NEGATIVE (NEGATIVE); BENZODIAZEPINES SCREEN,URINE NEGATIVE (NEGATIVE); CANNABINOID SCREEN,URINE NEGATIVE (NEGATIVE); COCAINE SCREEN,URINE NEGATIVE (NEGATIVE); METHADONE SCREEN, URINE NEGATIVE (NEGATIVE); OPIATE SCREEN,URINE NEGATIVE (NEGATIVE)
[2018-03-20 21:17] LABS: PHENCYCLIDINE SCREEN,URINE NEGATIVE (NEGATIVE)
[2018-03-21 00:47] VITALS: BP 108/77
[2018-03-21] MEDS: ZOLPIDEM TARTRATE 10 MG TABLET PO PRN (02:02)
[2018-03-21] MEDS: LORazepam 2 MG TABLET PO PRN ×2 (02:02→08:18)
[2018-03-21 03:26] LABS: APPEARANCE,URINE TURBID (CLEAR); BILIRUBIN,URINE NEGATIVE (NEGATIVE); GLUCOSE, URINE (UA) NEGATIVE (NEGATIVE); KETONES,URINE TRACE mg/dL (NEGATIVE); LEUKOCYTE ESTERASE ,URINE MODERATE (NEGATIVE); NITRATE,URINE NEGATIVE (NEGATIVE); OCCULT BLOOD,URINE LARGE (NEGATIVE); PROTEIN,URINE TRACE (NEGATIVE)
[2018-03-21 03:46] LABS: BACTERIA,URINE Moderate /HPF (None Seen); WBC,URINE 26-50 /HPF (0-5)
[2018-03-21 03:47] LABS: AMORPHOUS SEDIMENT,UR Few /LPF (None Seen); SQUAMOUS EPITHELIAL CELL,UR Many /LPF (None Seen)
[2018-03-21 08:12] VITALS: BP 115/76
[2018-03-21] MEDS: HALOPERIDOL 5 MG TABLET PO PRN (08:18)
[2018-03-21] MEDS ORDERED: LOPERAMIDE HCL 2 MG CAPSULE PO PRN (11:30)
[2018-03-21] MEDS ORDERED: ALBUTEROL SULFATE HFA 90 MCG/PUFF 8 GM INHALER IH PRN (11:30)
[2018-03-21] MEDS ORDERED: NICOTINE 14 MG/24 HOUR PATCH TD PRN (11:30)
[2018-03-21] MEDS ORDERED: PETROLATUM,WHITE 71 GM JELLY TP PRN (11:30)
[2018-03-21] MEDS ORDERED: DOCUSATE SODIUM 100 MG CAPSULE PO PRN (11:30)
[2018-03-21] MEDS ORDERED: IBUPROFEN 400 MG TABLET PO PRN (11:30)
[2018-03-21] MEDS ORDERED: CloNIDine HCL 0.1 MG TABLET PO PRN (11:30)
[2018-03-21] MEDS ORDERED: MAGNESIUM HYDROXIDE SUSPENSION 30 ML UDCUP PO PRN (11:30)
[2018-03-21] MEDS ORDERED: MAG HYDROX/AL HYDROX/SIMETH ES 30 ML SUSPENSION UDCUP PO PRN (11:30)
[2018-03-21] MEDS ORDERED: GuaiFENesin/D-METHORPHAN [SUGAR-FREE] 200-20MG/10 ML SYRUP UDCUP PO PRN (11:30)
[2018-03-21] MEDS ORDERED: ACETAMINOPHEN 325 MG TABLET PO PRN (11:30)
[2018-03-21 12:40] LABS: PATHOLOGY REVIEW, DIFF SEE NOTE.
[2018-03-21] MEDS: CEPHALEXIN MONOHYDRATE 500 MG CAPSULE PO SCH ×2 (12:46→16:40)
[2018-03-21 16:09] VITALS: BP 113/75
[2018-03-21] MEDS: DIVALPROEX SODIUM 500 MG ER TABLET PO SCH (16:41)
[2018-03-22 08:05] VITALS: BP 105/80
[2018-03-22] MEDS: DIVALPROEX SODIUM 500 MG ER TABLET PO SCH ×2 (09:13→17:02)
[2018-03-22] MEDS: HALOPERIDOL 10 MG TABLET PO SCH (09:13)
[2018-03-22] MEDS: CEPHALEXIN MONOHYDRATE 500 MG CAPSULE PO SCH ×3 (09:13→17:02)
[2018-03-22 10:48] VITALS: BP 117/72
[2018-03-22] MEDS: LORazepam 2 MG TABLET PO PRN (13:43)
[2018-03-22] MEDS: ONDANSETRON HCL 4 MG TABLET PO PRN (17:25)
[2018-03-22 18:28] VITALS: BP 111/88
[2018-03-22] MEDS: ZOLPIDEM TARTRATE 10 MG TABLET PO PRN (20:09)
[2018-03-23] MEDS: DIVALPROEX SODIUM 500 MG ER TABLET PO SCH ×2 (08:40→16:11)
[2018-03-23] MEDS: HALOPERIDOL 10 MG TABLET PO SCH (08:40)
[2018-03-23] MEDS: CEPHALEXIN MONOHYDRATE 500 MG CAPSULE PO SCH ×3 (08:40→16:11)
[2018-03-23] MEDS ORDERED: HALOPERIDOL DECANOATE 100 MG/ML VIAL IM SCH (09:00)
[2018-03-23 09:56] VITALS: BP 130/70
[2018-03-23 16:26] VITALS: BP 121/79
[2018-03-23] MEDS: ZOLPIDEM TARTRATE 10 MG TABLET PO PRN (21:15)
[2018-03-24 06:05] VITALS: BP 108/62
[2018-03-24 08:00] VITALS: BP 118/71
[2018-03-24] MEDS: LORazepam 2 MG TABLET PO PRN (08:13)
[2018-03-24] MEDS: DIVALPROEX SODIUM 500 MG ER TABLET PO SCH ×2 (08:13→16:02)
[2018-03-24] MEDS: HALOPERIDOL 10 MG TABLET PO SCH (08:13)
[2018-03-24] MEDS: CEPHALEXIN MONOHYDRATE 500 MG CAPSULE PO SCH ×3 (08:13→16:02)
[2018-03-24 15:37] VITALS: BP 111/72
[2018-03-24 16:37] VITALS: BP 135/86
[2018-03-25 08:00] VITALS: BP 111/68
[2018-03-25] MEDS: HALOPERIDOL 10 MG TABLET PO SCH (08:20)
[2018-03-25] MEDS: CEPHALEXIN MONOHYDRATE 500 MG CAPSULE PO SCH ×3 (08:20→16:24)
[2018-03-25] MEDS: DIVALPROEX SODIUM 500 MG ER TABLET PO SCH (08:20)
[2018-03-25] MEDS: LORazepam 2 MG TABLET PO PRN ×3 (08:20→18:29)
[2018-03-25] MEDS: HALOPERIDOL 5 MG TABLET PO PRN ×2 (14:24→18:29)
[2018-03-25] MEDS: DIVALPROEX SODIUM 250 MG ER TABLET PO SCH (16:24)
[2018-03-25 16:56] VITALS: BP 115/76
[2018-03-26 08:00] VITALS: BP 114/73
[2018-03-26] MEDS: DIVALPROEX SODIUM 250 MG ER TABLET PO SCH ×2 (08:54→16:30)
[2018-03-26] MEDS: HALOPERIDOL 10 MG TABLET PO SCH (08:54)
[2018-03-26] MEDS: CEPHALEXIN MONOHYDRATE 500 MG CAPSULE PO SCH ×3 (08:54→16:30)
[2018-03-26 18:14] VITALS: BP 109/76
[2018-03-27] MEDS: ZOLPIDEM TARTRATE 10 MG TABLET PO PRN (02:17)
[2018-03-27] MEDS: LORazepam 2 MG TABLET PO PRN ×2 (02:17→17:33)
[2018-03-27 08:22] VITALS: BP 102/68
[2018-03-27] MEDS: CEPHALEXIN MONOHYDRATE 500 MG CAPSULE PO SCH ×3 (09:05→16:21)
[2018-03-27] MEDS: HALOPERIDOL 10 MG TABLET PO SCH (09:05)
[2018-03-27] MEDS: DIVALPROEX SODIUM 250 MG ER TABLET PO SCH ×2 (09:05→16:21)
[2018-03-27] MEDS: HALOPERIDOL 5 MG TABLET PO PRN (17:33)
[2018-03-27 18:28] VITALS: BP 106/56
[2018-03-28] MEDS: LORazepam 2 MG TABLET PO PRN ×2 (00:19→10:20)
[2018-03-28] MEDS: ZOLPIDEM TARTRATE 10 MG TABLET PO PRN (00:19)
[2018-03-28 08:34] VITALS: BP 103/52
[2018-03-28] MEDS: DIVALPROEX SODIUM 250 MG ER TABLET PO SCH ×2 (08:52→16:55)
[2018-03-28] MEDS: CEPHALEXIN MONOHYDRATE 500 MG CAPSULE PO SCH ×3 (08:54→16:55)
[2018-03-28] MEDS: HALOPERIDOL 10 MG TABLET PO SCH (08:54)
[2018-03-28] MEDS: HALOPERIDOL 5 MG TABLET PO PRN (10:20)
[2018-03-28 19:45] VITALS: BP 110/66
[2018-03-29] MEDS: DIVALPROEX SODIUM 250 MG ER TABLET PO SCH ×2 (08:29→16:45)
[2018-03-29] MEDS: HALOPERIDOL 10 MG TABLET PO SCH (08:29)
[2018-03-29] MEDS: LORazepam 2 MG TABLET PO PRN ×2 (08:29→13:40)
[2018-03-29] MEDS: CEPHALEXIN MONOHYDRATE 500 MG CAPSULE PO SCH ×3 (08:29→16:45)
[2018-03-29 10:00] VITALS: BP 118/65
[2018-03-29] MEDS: HALOPERIDOL 5 MG TABLET PO PRN (13:40)
[2018-03-29 17:22] VITALS: BP 123/72
[2018-03-30] MEDS: DIVALPROEX SODIUM 250 MG ER TABLET PO SCH ×2 (09:02→16:32)
[2018-03-30] MEDS: HALOPERIDOL 10 MG TABLET PO SCH (09:02)
[2018-03-30] MEDS: CEPHALEXIN MONOHYDRATE 500 MG CAPSULE PO SCH ×3 (09:02→16:31)
[2018-03-30 09:19] VITALS: BP 106/66
[2018-03-30] MEDS: LORazepam 2 MG TABLET PO PRN (12:32)
[2018-03-30] MEDS: HALOPERIDOL 5 MG TABLET PO PRN (12:32)
[2018-03-30 16:54] VITALS: BP 109/67
[2018-03-31] MEDS: HALOPERIDOL 10 MG TABLET PO SCH (08:05)
[2018-03-31] MEDS: LORazepam 2 MG TABLET PO PRN ×2 (08:05→14:52)
[2018-03-31] MEDS: DIVALPROEX SODIUM 250 MG ER TABLET PO SCH ×2 (08:05→16:20)
[2018-03-31] MEDS: CEPHALEXIN MONOHYDRATE 500 MG CAPSULE PO SCH (08:05)
[2018-03-31 09:37] VITALS: BP 115/67
[2018-03-31] MEDS: HALOPERIDOL 5 MG TABLET PO PRN (14:52)
[2018-04-01 08:00] VITALS: BP 115/67
[2018-04-01] MEDS: LORazepam 2 MG TABLET PO PRN ×2 (09:15→16:39)
[2018-04-01] MEDS: DIVALPROEX SODIUM 250 MG ER TABLET PO SCH (09:20)
[2018-04-01] MEDS: HALOPERIDOL 10 MG TABLET PO SCH (09:21)
[2018-04-01 16:17] VITALS: BP 110/68
[2018-04-01] MEDS: DIVALPROEX SODIUM 500 MG ER TABLET PO SCH (16:38)
[2018-04-01] MEDS: ZOLPIDEM TARTRATE 10 MG TABLET PO PRN (20:45)
[2018-04-02] MEDS: HALOPERIDOL 10 MG TABLET PO SCH (07:49)
[2018-04-02] MEDS: LORazepam 2 MG TABLET PO PRN ×2 (07:49→11:52)
[2018-04-02] MEDS: DIVALPROEX SODIUM 500 MG ER TABLET PO SCH ×2 (07:49→16:42)
[2018-04-02 08:04] VITALS: BP 126/79
[2018-04-02] MEDS: HALOPERIDOL 5 MG TABLET PO PRN (11:52)
[2018-04-02 16:30] VITALS: BP 119/77
[2018-04-03] MEDS: LORazepam 2 MG TABLET PO PRN ×2 (09:21→16:30)
[2018-04-03] MEDS: HALOPERIDOL 10 MG TABLET PO SCH (09:21)
[2018-04-03] MEDS: DIVALPROEX SODIUM 500 MG ER TABLET PO SCH ×2 (09:21→17:18)
[2018-04-03] MEDS: HALOPERIDOL 5 MG TABLET PO PRN (17:00)
[2018-04-04 08:00] VITALS: BP 114/74
[2018-04-04] MEDS: DIVALPROEX SODIUM 500 MG ER TABLET PO SCH ×2 (08:24→16:59)
[2018-04-04] MEDS: LORazepam 2 MG TABLET PO PRN (08:24)
[2018-04-04] MEDS: HALOPERIDOL 10 MG TABLET PO SCH (08:24)
[2018-04-04 19:15] VITALS: BP 121/79
[2018-04-05] MEDS: HALOPERIDOL 10 MG TABLET PO SCH (08:58)
[2018-04-05] MEDS: DIVALPROEX SODIUM 500 MG ER TABLET PO SCH ×2 (08:58→16:52)
[2018-04-05] MEDS: HALOPERIDOL 5 MG TABLET PO PRN (14:51)
[2018-04-05] MEDS: LORazepam 2 MG TABLET PO PRN (14:51)
[2018-04-05 18:31] VITALS: BP 124/76
[2018-04-05] MEDS: ZOLPIDEM TARTRATE 10 MG TABLET PO PRN (20:30)
[2018-04-06] MEDS: DIVALPROEX SODIUM 500 MG ER TABLET PO SCH ×2 (09:28→17:00)
[2018-04-06] MEDS: HALOPERIDOL 10 MG TABLET PO SCH (09:28)
[2018-04-06] MEDS: HALOPERIDOL 5 MG TABLET PO PRN (12:39)
[2018-04-06] MEDS: LORazepam 2 MG TABLET PO PRN (12:39)
[2018-04-06] MEDS: VALPROIC ACID 250 MG/5 ML SYRUP UDCUP PO SCH (19:10)
[2018-04-07 08:00] VITALS: BP 113/70
[2018-04-07] MEDS: HALOPERIDOL 10 MG TABLET PO SCH (08:09)
[2018-04-07] MEDS: VALPROIC ACID 250 MG/5 ML SYRUP UDCUP PO SCH ×2 (08:09→16:24)
[2018-04-07] MEDS: LORazepam 2 MG TABLET PO PRN (08:11)
[2018-04-07 16:59] VITALS: BP 109/77
[2018-04-08 08:00] VITALS: BP 99/68
[2018-04-08] MEDS: LORazepam 2 MG TABLET PO PRN ×2 (08:52→17:14)
[2018-04-08] MEDS: HALOPERIDOL 10 MG TABLET PO SCH (08:53)
[2018-04-08] MEDS: VALPROIC ACID 250 MG/5 ML SYRUP UDCUP PO SCH ×2 (08:53→17:14)
[2018-04-08] MEDS: HALOPERIDOL 5 MG TABLET PO PRN ×2 (11:11→17:14)
[2018-04-08 16:00] VITALS: BP 105/68
[2018-04-09] MEDS: HALOPERIDOL 10 MG TABLET PO SCH (08:41)
[2018-04-09] MEDS: VALPROIC ACID 250 MG/5 ML SYRUP UDCUP PO SCH ×2 (08:41→16:29)
[2018-04-09] MEDS: ONDANSETRON HCL 4 MG TABLET PO PRN (09:34)
[2018-04-09 09:41] VITALS: BP 121/63
[2018-04-09 19:24] VITALS: BP 113/69
[2018-04-10 06:43] LABS: ALANINE AMINOTRANSFERASE 30 U/L (12-78); ALBUMIN 2.6 g/dL (3.4-5.0); ALKALINE PHOSPHATASE 76 U/L (46-116); ANION GAP 4 mmol/L (8-16); ASPARTATE AMINOTRANSFERASE 29 U/L (15-37); BASOPHILS % (AUTO) 0.2 % (0.0-2.0); BILIRUBIN,TOTAL 0.4 mg/dL (0.1-1.0); CALCIUM, TOTAL 8.5 mg/dL (8.8-10.5); CARBON DIOXIDE 32 mmol/L (22-29); CHLORIDE 106 mmol/L (98-107); EOSINOPHILS % (AUTO) 1.1 % (1.0-6.0); GLOMERULAR FILTR. RATE CALC > 60 mL/min (>60); GLUCOSE,RANDOM 81 mg/dL (70-110); HEMATOCRIT 34.1 % (36-46); HEMOGLOBIN 11.8 g/dL (12.0-16.0); LYMPHOCYTES # (AUTO) 3.2 K/uL (1.0-4.8); LYMPHOCYTES % (AUTO) 39.8 % (22.0-44.0); MEAN CORPUSCULAR HEMOGLOBIN 32.4 pg (26.0-34.0); MEAN CORPUSCULAR HGB CONC 34.6 G/dL (31.0-37.0); MEAN CORPUSCULAR VOLUME 94 fL (80-100); MONOCYTES # (AUTO) 1.2 K/uL (0.1-1.0); MONOCYTES % (AUTO) 15.4 % (2.0-9.0); NEUTROPHILS # (AUTO) 3.5 K/uL (1.8-7.7); NEUTROPHILS % (AUTO) 43.5 % (40.0-70.0); PLATELET COUNT (AUTO) 96 K/uL (150-450); POTASSIUM 3.8 mmol/L (3.5-5.1); RED BLOOD CELL COUNT(AUTO) 3.65 MIL/uL (4.00-5.20); RED CELL DISTRIBUTION WIDTH 15.1 % (11.5-14.5); SODIUM SERUM 142 mmol/L (136-145); TOTAL PROTEIN, SERUM 5.7 g/dL (6.4-8.2); UREA NITROGEN, BLOOD 15 mg/dL (7-18); VALPROIC ACID 98 mcg/mL (50-100)
[2018-04-10 08:00] VITALS: BP 100/60
[2018-04-10] MEDS: LORazepam 2 MG TABLET PO PRN ×2 (09:33→17:00)
[2018-04-10] MEDS: HALOPERIDOL 10 MG TABLET PO SCH (09:33)
[2018-04-10] MEDS: VALPROIC ACID 250 MG/5 ML SYRUP UDCUP PO SCH ×2 (09:33→17:01)
[2018-04-10 16:15] VITALS: BP 112/64
[2018-04-10] MEDS: HALOPERIDOL 5 MG TABLET PO PRN (17:00)
[2018-04-11 04:31] VITALS: BP 99/69
[2018-04-11 08:00] VITALS: BP 118/67
[2018-04-11] MEDS ORDERED: HALOPERIDOL LACTATE 10 MG/5 ML SOLUTION UDCUP PO SCH (09:00)
[2018-04-11] MEDS: VALPROIC ACID 250 MG/5 ML SYRUP UDCUP PO SCH ×2 (12:15→16:05)
[2018-04-11] MEDS ORDERED: HALO100V4 IM (14:50)
[2018-04-11] MEDS ORDERED: VALP250S23 PO (14:50)
[2018-04-11 16:55] VITALS: BP 112/67
[2018-04-20] MEDS ORDERED: HALOPERIDOL DECANOATE 100 MG/ML VIAL IM SCH (09:00)
== END 2018-04-11 17:30 | disposition home or self-care (01) | DRG 750 ==
LOC: EMS 18:18 → 3EC 03-21 00:08
PROVIDERS: ADMIT Psychiatry & Neurology Psychiatry; ATTEND Psychiatry & Neurology Psychiatry
DX: F25.0 Schizoaffective disorder, bipolar type (principal); R45.850 Homicidal ideations; G40.909 Epilepsy, unspecified, not intractable, without status epilepticus; F41.9 Anxiety disorder, unspecified; N39.0 Urinary tract infection, site not specified; Z79.899 Other long term (current) drug therapy; Z87.440 Personal history of urinary (tract) infections; Z91.19 Patient's noncompliance with other medical treatment and regimen
CPT/HCPCS: 87081; 87086; G0480; J1631; Q0162

== ENCOUNTER 2019-03-06 11:04 | Emergency (ER) | payer MEDICAID ==
[~2019-03-06] VITALS: Ht 160 cm; Wt 85.0 kg
[~2019-03-06 11:04] MED LIST changes: -DIVA500T52 PO; +HALO100V4 IM; +VALP250S23 PO
[2019-03-06 11:09] VITALS: BP 120/76
[2019-03-06 11:44] LABS: BASOPHILS % (AUTO) 0.5 % (0.0-2.0); EOSINOPHILS % (AUTO) 0.8 % (1.0-6.0); HEMOGLOBIN 12.6 g/dL (12.0-16.0); LYMPHOCYTES # (AUTO) 2.1 K/uL (1.0-4.8); LYMPHOCYTES % (AUTO) 20.6 % (22.0-44.0); MEAN CORPUSCULAR HEMOGLOBIN 28.1 pg (26.0-34.0); MEAN CORPUSCULAR HGB CONC 33.1 G/dL (31.0-37.0); MEAN CORPUSCULAR VOLUME 85 fL (80-100); MONOCYTES # (AUTO) 0.8 K/uL (0.1-1.0); NEUTROPHILS # (AUTO) 7.3 K/uL (1.8-7.7); NEUTROPHILS % (AUTO) 70.1 % (40.0-70.0); PLATELET COUNT (AUTO) 271 K/uL (150-450); RED BLOOD CELL COUNT(AUTO) 4.47 MIL/uL (4.00-5.20); RED CELL DISTRIBUTION WIDTH 13.5 % (11.5-14.5)
[2019-03-06 11:59] LABS: ANION GAP 9 mmol/L (8-16); CALCIUM, TOTAL 9.3 mg/dL (8.8-10.5); CARBON DIOXIDE 27 mmol/L (22-29); CHLORIDE 104 mmol/L (98-107); GLOMERULAR FILTR. RATE CALC > 60 mL/min (>60); GLUCOSE,RANDOM 80 mg/dL (70-110); POTASSIUM 3.8 mmol/L (3.5-5.1); SODIUM SERUM 140 mmol/L (136-145); UREA NITROGEN, BLOOD 15 mg/dL (7-18)
[2019-03-06 12:04] LABS: ALANINE AMINOTRANSFERASE 22 U/L (12-78); ALBUMIN 4.3 g/dL (3.4-5.0); ALKALINE PHOSPHATASE 64 U/L (46-116); ASPARTATE AMINOTRANSFERASE 18 U/L (15-37); BILIRUBIN,TOTAL 0.5 mg/dL (0.1-1.0); TOTAL PROTEIN, SERUM 7.7 g/dL (6.4-8.2); VALPROIC ACID < 3 mcg/mL (50-100)
== END 2019-03-06 13:16 | disposition home or self-care (01) ==
LOC: EMS 11:06
DX: F31.9 Bipolar disorder, unspecified (principal); F20.9 Schizophrenia, unspecified
CPT/HCPCS: 36415; 80053; 80164; 85025; 99284; G0480